=== PATIENT | female | born 1995 | race African-American/Black ===

== ENCOUNTER 2016-12-01 21:29 | Emergency (ER) | payer SELFPAY ==
[~2016-12-01] VITALS: Ht 175.3 cm; Wt 59.1 kg
[~2016-12-01 21:29] MED LIST: ACETAMINOPHEN W1 TA6 PO; AMOXICILLIN 50500 MG PO; B/P MED; BACTRIM DS 8001 TAB PO; BACTROBAN 22GM22 GM TP; CEPHALEXIN250 M1 PO; CEPHALEXIN500 M1 PO; CIPRO 500MG TA500 MG PO; CLEOCIN HC150 MG/CAP PO; CLINDAMYCIN150 MG PO; DEPO-PROVE400 MG/1 M; DIFLUCAN150 MG PO; DOXYCYCLINE 10100 MG PO; LORTAB 5/500 501 TAB PO; NAPROSYN500 MG PO; NO HOME MEDICATIONS; NORCO 325 MG-51 TAB; NORCO 325 MG-51 TAB PO; NORCO 325 MG-7.1 TAB PO; NORVASC 5MG5 MG/TAB PO; PEN-VEE K500 MG PO; PERCOCET 325 MG1 TA2 PO; PRINIVIL10 MG PO; PRINIVIL20 MG PO; SEPTRA DS 8001 TAB PO; ULTRAM 50MG TAB50 MG PO; VALTREX1 GM PO; ZESTRIL 10MG10 MG PO; ZOFRAN 4MG T4 MG/TAB PO; ZOFRAN ODT4 MG PO
[2016-12-01 21:34] VITALS: TEMP 98.1
[2016-12-01 22:35] LABS: PH 6 (5-8); SQUAMOUS EPITHELIAL 0-2 /hpf; URINE APPEARANCE Clear; URINE BACTERIA None Seen /hpf; URINE BILIRUBIN Negative (NEGATIVE); URINE BLOOD Negative (NEGATIVE); URINE COLOR Yellow; URINE GLUCOSE Negative (NEGATIVE); URINE KETONE Negative (NEGATIVE); URINE RBC 0-2 /hpf; URINE UROBILINOGEN Negative (NEGATIVE); URINE WBC 0-2 /hpf
[2016-12-01 22:36] LABS: BASO % 0.3 % (0.0-2.0); EOS # 0.2 (0.0-0.7); EOS % 2.8 % (0-4.0); GRAN # 3.6 (1.4-6.5); GRAN % 55.8 % (42.2-75.2); LYMPH # 2.2 (1.2-3.4); LYMPH % 34.9 % (20.0-51.0); MEAN CELL VOLUME 87 fl (80.0-100.0); MEAN CORPUSCULAR HGB CONC 33 g/dl (33.0-37.0); MEAN PLATELET VOLUME 10.9 fl (7.4-10.4); MONO # 0.4 (0.1-0.6); MONO % 5.9 % (1.7-9.3); PLATELET COUNT 179 K/mm3 (130-400); RED BLOOD COUNT 3.86 M/mm3 (4.10-5.30); REDCELL DISTRIBUTION WIDTH-CV 14.9 % (11.5-14.5); WHITE BLOOD COUNT 6.4 K/mm3 (4.8-10.8)
[2016-12-01 22:39] LABS: HEMATOCRIT 33.4 % (37.0-47.0); HEMOGLOBIN 11.1 g/dl (12.5-16.0); MEAN CORPUSCULAR HEMOGLOBIN 29 pg (27.0-31.0)
[2016-12-01 22:46] LABS: ADJUSTED CALCIUM 9.4 mg/dL (8.4-10.2); ALBUMIN 4.1 gm/dL (3.5-5.0); BILIRUBIN,TOTAL 0.6 mg/dL (0.0-1.0); CALCIUM 9.5 mg/dL (8.4-10.2); CREATININE, serum 0.79 mg/dL (0.52-1.25); MAGNESIUM 2.1 mg/dL (1.6-2.3); POTASSIUM 3.9 mmol/L (3.4-5.0)
[2016-12-01] MEDS ORDERED: PRINIVIL10 MG PO (22:56)
[2016-12-01 23:01] VITALS: BP 160/78; PULSE 98
== END 2016-12-01 23:03 | disposition home or self-care (01) ==
LOC: COL.ER 21:29
PROVIDERS: Physician Assistant
DX: R49.0 Dysphonia (principal); R60.0 Localized edema; D64.9 Anemia, unspecified; D57.3 Sickle-cell trait; T46.5X6A Underdosing of other antihypertensive drugs, initial encounter; I10 Essential (primary) hypertension; Z91.128 Patient's intentional underdosing of medication regimen for other reason; F17.210 Nicotine dependence, cigarettes, uncomplicated; R09.89 Other specified symptoms and signs involving the circulatory and respiratory systems

== ENCOUNTER 2016-12-27 17:03 | Emergency (ER) | payer SELFPAY ==
[~2016-12-27] VITALS: Ht 170.2 cm; Wt 63.6 kg
[2016-12-27 17:09] VITALS: TEMP 100.1
[2016-12-27 17:25] LABS: BASO % 0.5 % (0.0-2.0); EOS # 0.2 (0.0-0.7); EOS % 2.3 % (0-4.0); GRAN # 4.7 (1.4-6.5); GRAN % 60.4 % (42.2-75.2); LYMPH # 2.4 (1.2-3.4); LYMPH % 30.9 % (20.0-51.0); MEAN CELL VOLUME 87 fl (80.0-100.0); MEAN CORPUSCULAR HEMOGLOBIN 29 pg (27.0-31.0); MEAN CORPUSCULAR HGB CONC 33 g/dl (33.0-37.0); MEAN PLATELET VOLUME 10.7 fl (7.4-10.4); MONO # 0.5 (0.1-0.6); MONO % 5.8 % (1.7-9.3); PLATELET COUNT 211 K/mm3 (130-400); RED BLOOD COUNT 4.16 M/mm3 (4.10-5.30); WHITE BLOOD COUNT 7.7 K/mm3 (4.8-10.8)
[2016-12-27 17:26] LABS: HEMATOCRIT 36.1 % (37.0-47.0)
[2016-12-27 17:35] LABS: ADJUSTED CALCIUM 8.9 mg/dL (8.4-10.2); BILIRUBIN,TOTAL 0.6 mg/dL (0.0-1.0); CALCIUM 8.9 mg/dL (8.4-10.2); CREATININE, serum 0.76 mg/dL (0.52-1.25); TOTAL PROTEIN 6.9 gm/dL (6.4-8.2)
[2016-12-27 17:39] LABS: INR 1.1 (0.8-3.0); PROTHROMBIN TIME 12.6 SECONDS (9.7-12.8)
[2016-12-27 17:42] LABS: PARTIAL THROMBOPLASTIN TIME 30.6 SECONDS (26.0-37.0)
[2016-12-27 18:31] LABS: PH 6 (5-8); URINE APPEARANCE Hazy; URINE BILIRUBIN Negative (NEGATIVE); URINE BLOOD Negative (NEGATIVE); URINE COLOR Yellow; URINE GLUCOSE Negative (NEGATIVE); URINE KETONE Negative (NEGATIVE); URINE UROBILINOGEN Negative (NEGATIVE)
[2016-12-27 18:37] LABS: SQUAMOUS EPITHELIAL 20-50 /hpf; URINE RBC 0-2 /hpf
[2016-12-27] MEDS ORDERED: NORCO 325 MG-51 TAB PO (19:33)
[2016-12-27] MEDS ORDERED: CEPHALEXIN500 M1 PO (19:33)
[2016-12-27 19:53] VITALS: BP 152/97; PULSE 91
== END 2016-12-27 19:57 | disposition home or self-care (01) ==
LOC: COL.ER 17:03
PROVIDERS: Emergency Medicine
DX: S21.212A Laceration without foreign body of left back wall of thorax without penetration into thoracic cavity, initial encounter (principal); W22.8XXA Striking against or struck by other objects, initial encounter; Y92.009 Unspecified place in unspecified non-institutional (private) residence as the place of occurrence of the external cause; I10 Essential (primary) hypertension; F17.210 Nicotine dependence, cigarettes, uncomplicated
CPT/HCPCS: J0690; J3010; J7030; Q9967

== ENCOUNTER 2016-12-28 13:33 | Emergency (ER) | payer SELFPAY ==
[~2016-12-28] VITALS: Ht 170.2 cm; Wt 63.6 kg
[2016-12-28 14:31] LABS: ADJUSTED CALCIUM 8.8 mg/dL (8.4-10.2); BASO % 0.4 % (0.0-2.0); BILIRUBIN,TOTAL 0.5 mg/dL (0.0-1.0); CALCIUM 8.8 mg/dL (8.4-10.2); CREATININE, serum 0.69 mg/dL (0.52-1.25); EOS # 0.2 (0.0-0.7); EOS % 1.9 % (0-4.0); GRAN # 5.4 (1.4-6.5); GRAN % 70.1 % (42.2-75.2); HEMATOCRIT 34.4 % (37.0-47.0); HEMOGLOBIN 11.5 g/dl (12.5-16.0); LYMPH # 1.6 (1.2-3.4); LYMPH % 20.1 % (20.0-51.0); MEAN CELL VOLUME 87 fl (80.0-100.0); MEAN CORPUSCULAR HEMOGLOBIN 29 pg (27.0-31.0); MEAN CORPUSCULAR HGB CONC 33 g/dl (33.0-37.0); MEAN PLATELET VOLUME 11.4 fl (7.4-10.4); MONO # 0.6 (0.1-0.6); MONO % 7.1 % (1.7-9.3); PLATELET COUNT 177 K/mm3 (130-400); POTASSIUM 3.7 mmol/L (3.4-5.0); RED BLOOD COUNT 3.94 M/mm3 (4.10-5.30); REDCELL DISTRIBUTION WIDTH-CV 15.3 % (11.5-14.5); TOTAL PROTEIN 6.8 gm/dL (6.4-8.2); WHITE BLOOD COUNT 7.8 K/mm3 (4.8-10.8)
[2016-12-28 15:41] LABS: PH 8 (5-8); URINE APPEARANCE Clear; URINE BILIRUBIN Negative (NEGATIVE); URINE BLOOD 1+ (NEGATIVE); URINE COLOR Yellow; URINE GLUCOSE Negative (NEGATIVE); URINE KETONE Negative (NEGATIVE); URINE UROBILINOGEN Negative (NEGATIVE)
[2016-12-28 15:53] LABS: URINE RBC 0-2 /hpf
[2016-12-28 16:20] VITALS: BP 160/92; PULSE 82; TEMP 98.9
== END 2016-12-28 16:20 | disposition home or self-care (01) ==
LOC: COL.ER 13:33
PROVIDERS: Physician Assistant
DX: R10.32 Left lower quadrant pain (principal); R11.2 Nausea with vomiting, unspecified; S21.212D Laceration without foreign body of left back wall of thorax without penetration into thoracic cavity, subsequent encounter; W45.8XXD Other foreign body or object entering through skin, subsequent encounter; I10 Essential (primary) hypertension; M54.89 Other dorsalgia; R82.99 Other abnormal findings in urine

== ENCOUNTER 2019-02-13 02:54 | Emergency (ER) | payer SELFPAY ==
[~2019-02-13] VITALS: Ht 175.3 cm; Wt 77.3 kg
[~2019-02-13 02:54] MED LIST changes: +ATARAX 25MG25 MG/TAB PO; +CLEOCIN HCL300 MG PO; +ELIMITE TOP
[2019-02-13 02:56] VITALS: TEMP 98.5
[2019-02-13] MEDS ORDERED: PERCOCET 325 MG1 TA2 PO (04:17)
[2019-02-13] MEDS ORDERED: AMOXICILLIN 50500 MG PO (04:17)
[2019-02-13 04:45] VITALS: BP 142/96; PULSE 87
== END 2019-02-13 04:46 | disposition home or self-care (01) ==
LOC: COL.ER 02:54
DX: K03.81 Cracked tooth (principal); K02.9 Dental caries, unspecified; I10 Essential (primary) hypertension
CPT/HCPCS: J1170

== ENCOUNTER 2019-11-21 12:08 | Emergency (ER) | payer SELFPAY ==
[~2019-11-21] VITALS: Ht 175.3 cm; Wt 81.8 kg
[2019-11-21 12:17] VITALS: TEMP 98.7
[2019-11-21 12:42] LABS: COLLECTION METHOD CLEAN CATCH
[2019-11-21 12:50] LABS: BASO % 0.2 % (0.0-2.0); EOS # 0.1 (0.0-0.7); EOS % 1.2 % (0-4.0); GRAN # 8.7 (1.4-6.5); GRAN % 78.9 % (42.2-75.2); HEMOGLOBIN 12.1 g/dl (12.5-16.0); LYMPH # 1.4 (1.2-3.4); LYMPH % 12.4 % (20.0-51.0); MEAN CELL VOLUME 80 fl (80.0-100.0); MEAN CORPUSCULAR HEMOGLOBIN 27 pg (27.0-31.0); MEAN CORPUSCULAR HGB CONC 33 g/dl (33.0-37.0); MEAN PLATELET VOLUME 10.8 fl (7.4-10.4); MONO # 0.8 (0.1-0.6); PLATELET COUNT 184 K/mm3 (130-400); RED BLOOD COUNT 4.53 M/mm3 (4.10-5.30); REDCELL DISTRIBUTION WIDTH-CV 17.1 % (11.5-14.5)
[2019-11-21 12:51] LABS: HEMATOCRIT 36.4 % (37.0-47.0)
[2019-11-21 13:00] LABS: MUCOUS Present /lpf; PH 5 (5-8); URINE APPEARANCE Cloudy; URINE BACTERIA Occasional /hpf; URINE BILIRUBIN Negative (NEGATIVE); URINE BLOOD 2+ (NEGATIVE); URINE COLOR Yellow; URINE GLUCOSE Negative (NEGATIVE); URINE KETONE Trace (NEGATIVE); URINE LEUKOCYTE ESTERASE 3+ (NEGATIVE); URINE NITRATE Positive (NEGATIVE); URINE PROTEIN(semi-quant) Negative (NEGATIVE); URINE UROBILINOGEN >=4.0 mg/dL (NEGATIVE)
[2019-11-21 13:01] LABS: ALBUMIN 4.7 gm/dL (3.5-5.0); C-REACTIVE PROTEIN 2.3 mg/dL (0.0-0.9); CALCIUM 9.4 mg/dL (8.4-10.2); CREATININE, serum 0.65 (0.52-1.25); POTASSIUM 3.8 mmol/L (3.4-5.0); TOTAL PROTEIN 8.2 gm/dL (6.4-8.2)
[2019-11-21] MEDS ORDERED: NORCO 325 MG-7.1 TAB PO (15:38)
[2019-11-21] MEDS ORDERED: CEFTIN 250250 MG/TAB PO (15:38)
[2019-11-21 15:58] VITALS: BP 159/116; PULSE 74
== END 2019-11-21 16:11 | disposition home or self-care (01) ==
LOC: COL.ER 12:08
PROVIDERS: Physician Assistant
DX: N83.201 Unspecified ovarian cyst, right side (principal); N12 Tubulo-interstitial nephritis, not specified as acute or chronic; F17.210 Nicotine dependence, cigarettes, uncomplicated
CPT/HCPCS: J0696; J1170; J2405; J7030; Q9967

== ENCOUNTER 2021-01-14 00:28 | Emergency (ER) | payer SELFPAY ==
[~2021-01-14] VITALS: Ht 172.7 cm; Wt 72.7 kg
[~2021-01-14 00:28] MED LIST changes: +CEFTIN 250250 MG/TAB PO
[2021-01-14 01:54] LABS: COLLECTION METHOD CLEAN CATCH
[2021-01-14 02:01] LABS: MUCOUS Present /lpf; PH 8 (5-8); URINE APPEARANCE Hazy; URINE BACTERIA None Seen /hpf; URINE BILIRUBIN Negative (NEGATIVE); URINE BLOOD 2+ (NEGATIVE); URINE COLOR Yellow; URINE GLUCOSE Negative (NEGATIVE); URINE KETONE Negative (NEGATIVE); URINE LEUKOCYTE ESTERASE Trace (NEGATIVE); URINE NITRATE Negative (NEGATIVE); URINE PROTEIN(semi-quant) 1+ (NEGATIVE); URINE RBC 0-2 /hpf; URINE UROBILINOGEN Negative (NEGATIVE)
[2021-01-14 02:12] LABS: TRICYCLIC ANTIDEPRESS URINE NEGATIVE
[2021-01-14 03:07] LABS: BASO % 0.4 % (0.0-2.0); EOS # 0.1 (0.0-0.7); EOS % 1.4 % (0-4.0); GRAN # 4.9 (1.4-6.5); GRAN % 60.5 % (42.2-75.2); HEMOGLOBIN 12.1 g/dl (12.5-16.0); LYMPH # 2.6 (1.2-3.4); LYMPH % 31.8 % (20.0-51.0); MEAN CELL VOLUME 81 fl (80.0-100.0); MEAN CORPUSCULAR HEMOGLOBIN 27 pg (27.0-31.0); MEAN CORPUSCULAR HGB CONC 34 g/dl (33.0-37.0); MEAN PLATELET VOLUME 10.8 fl (7.4-10.4); MONO # 0.5 (0.1-0.6); MONO % 5.8 % (1.7-9.3); PLATELET COUNT 190 K/mm3 (130-400); RED BLOOD COUNT 4.44 M/mm3 (4.10-5.30); REDCELL DISTRIBUTION WIDTH-CV 16.7 % (11.5-14.5)
[2021-01-14 03:08] LABS: HEMATOCRIT 35.9 % (37.0-47.0)
[2021-01-14 03:18] LABS: ALBUMIN 4.6 gm/dL (3.5-5.0); BILIRUBIN,TOTAL 0.7 mg/dL (0.0-1.0); CALCIUM 9.8 mg/dL (8.4-10.2); CREATININE, serum 0.66 (0.52-1.25); POTASSIUM 3.5 mmol/L (3.4-5.0); TOTAL PROTEIN 8.1 gm/dL (6.4-8.2)
[2021-01-14] MEDS ORDERED: MIRALAX510G PO (04:57)
[2021-01-14] MEDS ORDERED: ZESTRIL 10MG10 MG PO (04:57)
[2021-01-14] MEDS ORDERED: ULTRAM 50MG TAB50 MG PO (04:57)
[2021-01-14 06:09] VITALS: BP 163/104; PULSE 74; TEMP 98.2
== END 2021-01-14 06:11 | disposition home or self-care (01) ==
LOC: COL.ER 00:28
PROVIDERS: Emergency Medicine
DX: I16.0 Hypertensive urgency (principal); R18.8 Other ascites; Z91.14 Patient's other noncompliance with medication regimen
CPT/HCPCS: J0360; J1885; J2270; J2405; J7030

== ENCOUNTER 2021-10-30 20:44 | Emergency (ER) | payer SELFPAY ==
[~2021-10-30] VITALS: Ht 180.3 cm; Wt 77.3 kg
[~2021-10-30 20:44] MED LIST changes: +MIRALAX510G PO
[2021-10-30 20:46] VITALS: TEMP 97.5
[2021-10-30 21:29] LABS: COLLECTION METHOD CLEAN CATCH
[2021-10-30 21:35] LABS: BASO % 0.2 % (0.0-2.0); EOS # 0.1 K/mm3 (0.0-0.7); EOS % 1.2 % (0.0-4.0); GRAN # 7.5 K/mm3 (1.4-6.5); GRAN % 86.6 % (42.2-75.2); HEMATOCRIT 40.5 % (37.0-47.0); LYMPH # 0.7 K/mm3 (1.2-3.4); LYMPH % 7.9 % (20.0-51.0); MEAN CELL VOLUME 84 fl (80.0-100.0); MEAN CORPUSCULAR HEMOGLOBIN 29 pg (27-31); MEAN CORPUSCULAR HGB CONC 35 g/dl (33.0-37.0); MEAN PLATELET VOLUME 10.7 fl (7.4-10.4); MONO # 0.4 K/mm3 (0.1-0.6); PLATELET COUNT 208 K/mm3 (130-400); RED BLOOD COUNT 4.81 M/mm3 (4.10-5.30); REDCELL DISTRIBUTION WIDTH-CV 15.7 % (11.5-14.5)
[2021-10-30 21:39] LABS: PH 9 (5-8); URINE APPEARANCE Hazy (CLEAR/HAZY); URINE BACTERIA Occasional /hpf (NONE SEEN); URINE BILIRUBIN Negative (NEGATIVE); URINE BLOOD 2+ (NEGATIVE); URINE COLOR Yellow (YELLOW); URINE GLUCOSE Negative (NEGATIVE); URINE KETONE Negative (NEGATIVE); URINE LEUKOCYTE ESTERASE Negative (NEGATIVE); URINE NITRATE Negative (NEGATIVE); URINE PROTEIN(semi-quant) 2+ (NEGATIVE); URINE RBC >50 /hpf (0-2); URINE UROBILINOGEN Negative (NEGATIVE)
[2021-10-30 21:53] LABS: ALBUMIN 4.6 gm/dL (3.5-5.0); BILIRUBIN,TOTAL 0.5 mg/dL (0.2-1.2); C-REACTIVE PROTEIN 0.15 mg/dL (0.00-0.50); CALCIUM 9.2 mg/dL (8.4-10.2); CREATININE, serum 0.76 mg/dL (0.57-1.11); TOTAL PROTEIN 8.1 gm/dL (6.2-8.1)
[2021-10-31 00:45] VITALS: BP 165/105; PULSE 93
== END 2021-10-31 00:45 | disposition home or self-care (01) ==
LOC: COL.ER 20:44
PROVIDERS: Nurse Practitioner
DX: R05.9 Cough, unspecified (principal)
CPT/HCPCS: J2405; J2550; J7030

== ENCOUNTER 2022-02-04 10:15 | Emergency (ER) | payer SELFPAY ==
[~2022-02-04] VITALS: Ht 175.3 cm; Wt 76.4 kg
[2022-02-04 10:24] VITALS: TEMP 98.3
[2022-02-04 10:33] LABS: COLLECTION METHOD CLEAN CATCH
[2022-02-04 10:41] LABS: PH 7 (5-8); URINE APPEARANCE Clear (CLEAR/HAZY); URINE BACTERIA None Seen /hpf (NONE SEEN); URINE BILIRUBIN Negative (NEGATIVE); URINE BLOOD 2+ (NEGATIVE); URINE COLOR Yellow (YELLOW); URINE GLUCOSE Negative (NEGATIVE); URINE KETONE Negative (NEGATIVE); URINE LEUKOCYTE ESTERASE Trace (NEGATIVE); URINE NITRATE Negative (NEGATIVE); URINE PROTEIN(semi-quant) Negative (NEGATIVE); URINE UROBILINOGEN Negative (NEGATIVE)
[2022-02-04 10:48] LABS: BASO % 0.5 % (0.0-2.0); EOS # 0.2 K/mm3 (0.0-0.7); EOS % 3.5 % (0.0-4.0); GRAN # 2.9 K/mm3 (1.4-6.5); GRAN % 51.1 % (42.2-75.2); HEMATOCRIT 37.8 % (37.0-47.0); HEMOGLOBIN 13.3 g/dl (12.5-16.0); LYMPH # 2.1 K/mm3 (1.2-3.4); LYMPH % 36.5 % (20.0-51.0); MEAN CELL VOLUME 84 fl (80.0-100.0); MEAN CORPUSCULAR HEMOGLOBIN 30 pg (27-31); MEAN CORPUSCULAR HGB CONC 35 g/dl (33.0-37.0); MONO # 0.5 K/mm3 (0.1-0.6); MONO % 8.2 % (1.7-9.3); PLATELET COUNT 192 K/mm3 (130-400); REDCELL DISTRIBUTION WIDTH-CV 14.3 % (11.5-14.5)
[2022-02-04 11:12] LABS: ALBUMIN 4.1 gm/dL (3.5-5.0); BILIRUBIN,TOTAL 0.7 mg/dL (0.2-1.2); CALCIUM 9.4 mg/dL (8.4-10.2); CREATININE, serum 0.72 mg/dL (0.57-1.11); POTASSIUM 3.3 mmol/L (3.5-4.5); TOTAL PROTEIN 7.5 gm/dL (6.2-8.1)
[2022-02-04] MEDS ORDERED: CEPHALEXIN500 M1 PO (12:26)
[2022-02-04] MEDS ORDERED: MORPHINE 1515 MG/TAB PO (12:26)
[2022-02-04] MEDS ORDERED: NAPROSYN500 MG PO (12:26)
[2022-02-04 12:30] VITALS: BP 172/110; PULSE 69
[2022-02-06] MEDS ORDERED: MORPHINE 1515 MG/TAB PO (08:25)
== END 2022-02-04 12:30 | disposition home or self-care (01) ==
LOC: COL.ER 10:15
PROVIDERS: Emergency Medicine
DX: N12 Tubulo-interstitial nephritis, not specified as acute or chronic (principal); F17.210 Nicotine dependence, cigarettes, uncomplicated; Z32.02 Encounter for pregnancy test, result negative; Z28.310 Unvaccinated for COVID-19
CPT/HCPCS: J0696; J1790; J1885

== ENCOUNTER 2022-04-22 10:06 | Emergency (ER) | payer MEDICAID ==
[~2022-04-22] VITALS: Ht 175.3 cm; Wt 85.0 kg
[~2022-04-22 10:06] MED LIST changes: +MORPHINE 1515 MG/TAB PO
[2022-04-22 10:27] VITALS: TEMP 98.1
[2022-04-22] MEDS ORDERED: BACTRIM DS 8001 TAB PO (11:20)
[2022-04-22] MEDS ORDERED: NORCO 325 MG-51 TAB PO (11:20)
[2022-04-22 11:45] VITALS: BP 153/93; PULSE 83
== END 2022-04-22 11:45 | disposition home or self-care (01) ==
LOC: COL.ER 10:06
DX: L02.31 Cutaneous abscess of buttock (principal); F17.210 Nicotine dependence, cigarettes, uncomplicated; Z28.310 Unvaccinated for COVID-19

== ENCOUNTER 2023-11-20 11:12 | Emergency (ER) | payer SELFPAY ==
[~2023-11-20] VITALS: Ht 177.8 cm; Wt 84.6 kg
[~2023-11-20 11:12] MED LIST changes: +HCTZ 25MG TAB25 MG PO
[2023-11-20 11:20] VITALS: TEMP 98.2
[2023-11-20] MEDS ORDERED: AMOXICILLIN 50500 MG PO (11:34)
[2023-11-20] MEDS ORDERED: NORCO 325 MG-51 TAB PO (11:34)
[2023-11-20] MEDS ORDERED: Amoxicillin 500 MG CAP PO ONE (11:45)
[2023-11-20 11:57] VITALS: BP 173/118; PULSE 82
== END 2023-11-20 12:05 | disposition home or self-care (01) ==
LOC: COL.ER 11:12
DX: K02.9 Dental caries, unspecified (principal)